=== PATIENT | female | born 1970 | race Caucasian/White ===

== ENCOUNTER 2023-08-09 15:04 | Emergency (ER) | payer BC, SELFPAY ==
[2023-08-09 15:09] VITALS: BP 129/104
[2023-08-09 15:32] LABS: Urine Albumin Negative (Neg - Trace); Urine Bilirubin Negative (Negative); Urine Character Clear (Clear); Urine Color Yellow; Urine Glucose Negative (Negative); Urine Ketone Trace (Negative); Urine Leukocyte 1+ (Negative); Urine Nitrite Negative (Negative); Urine Occult Blood 2+ (Negative); Urine Specific Gravity 1.015 (<1.030); Urine Urobilinogen Negative (Neg - 1+); Urine pH 6.5 (5.0-9.0)
[2023-08-09 15:33] LABS: % Basophils 0.3 % (0-2); % Eosinophils 0.3 % (0-6); % Immature Granulocytes 0.2 % (0-0.5); % Lymphocytes 22.8 % (20.5-51.1); % Monocytes 5.3 % (1.7-9.3); % Neutrophils 71.1 % (42.2-75.2); Absolute Lymphocytes 2.7 10^3/uL (1.2-3.4); Absolute Monocytes 0.6 10^3/uL (0.1-0.6); Absolute Neutrophils 8.5 10^3/uL (1.4-6.5); Hematocrit 43.1 % (37.0-47.0); Hemoglobin 14.1 g/dL (12.0-16.0); Mean Corp Hgb Conc. 32.7 g/dL (33.0-37.0); Mean Corpuscular Hgb 23.1 pg (27.0-31.0); Mean Corpuscular Volume 70.7 fL (81.0-99.0); Mean Platelet Volume 9.2 fL (7.4-10.4); Nucleated Red Blood Cells % 0 %; Platelet Count 348 10^3/uL (130-400); Red Cell Dist. Width 14.4 % (11.5-14.5)
[2023-08-09 15:42] LABS: Urine Bacteria Few (Negative)
[2023-08-09 15:54] LABS: ALT (SGPT) 26 U/L (0-35); AST (SGOT) 30 U/L (14-36); Albumin 4.7 g/dl (3.5-5.0); Alkaline Phosphatase 107 U/L (38-126); Blood Urea Nitrogen 22 mg/dl (7-17); Calcium 9.7 mg/dl (8.4-10.2); Carbon Dioxide 28 mmol/L (22-30); Chloride 101 mmol/L (98-107); Glucose 115 mg/dl (70-99); Lipase 97 U/L (23-300); Potassium 3.7 mmol/L (3.5-5.1); Sodium 137 mmol/L (135-145); Total Bilirubin 0.6 mg/dl (0.2-1.3); Total Protein 7.7 g/dl (6.3-8.2); eGFR > 60.00
[2023-08-09 15:58] LABS: HCG, Serum Qualitative Screen Positive
[2023-08-09] MEDS: NSS 1000 IV (16:51)
[2023-08-09 17:07] LABS: Beta HCG Quantitative < 2.39 mIU/ml
[2023-08-09 19:47] VITALS: BP 152/86
--- NOTE | 2023-08-09 23:52 | ED.GENMED ---
Addendum entered and electronically signed by Campbell Reyes PA-C 08/11/23 15:00:
Urine culture greater than 100,000 colony-forming units of viridans strep group. There is many squamous cells on the urinalysis at the time of the visit however clinical concern was potential kidney stone. Called to speak with patient regarding
results and to assess her status however there is no answer. Left message to call back.
Original Note:
History of Present Illness
General
Chief Complaint: Flank Pain
Source: patient and spouse
Exam Limitations: none
Time Seen by Provider: 08/09/23 16:30
Nursing documentation reviewed up to this point in time: agreed with
Travel History
Have you had any contact with someone who has COVID-19?: No
Do you have any symptoms of coronavirus? Fever > 100 degrees, chills, cough, shortness of breath, sore throat, loss of taste or smell, muscle aches, or headache?: No
History of Present Illness
History of Present Illness:
53-year-old female with past medical history as noted presents to the emergency room for evaluation of abdominal pain. Patient reports onset of symptoms this morning shortly after she woke up�she reports she had very intense left-sided flank pain
that radiated to the left lower abdomen. She says it lasted for about 2 hours and then essentially resolved. She is currently pain-free at the time of assessment. She says she had associated nausea and 1 episode of vomiting with the pain. The
symptoms have also resolved. She denies any recent constipation or diarrhea. She denies any recent dysuria, hematuria, change in urinary frequency. She denies any other complaints. She says she is perimenopausal last menstrual period was
February. She denies any prior abdominal surgeries. She denies similar symptoms in the past. She apparently initially presented to urgent care and urgent care was found to have blood in her urine and was directed to the emergency room to be
evaluated possibly for kidney stone.
Review of Systems
Review of Systems
All Other Systems: ROS reviewed and negative except as documented in HPI and ROS
Constitutional: Denies fever or chills
EENT: Denies sore throat or runny nose
Respiratory: Denies cough or trouble breathing
Cardiac: Denies chest pain or palpitations
ABD/GI: Reports abdominal pain, nausea and vomiting; Denies diarrhea or constipated
: Reports flank pain; Denies dysuria, frequency or bleeding
Musculoskeletal: Denies neck pain or back pain
Neurological: Denies headache, weakness or numbness
Phy Exam
Physical Exam
Physical Exam:
General: Awake, alert, oriented x3; no acute distress
Head: Normocephalic, atraumatic
Eyes: Conjunctiva normal, sclera anicteric
Throat: Airway intact, handling secretions
Neck: Trachea midline, supple without meningismus
Lungs: Clear to auscultation bilaterally, no wheezing, rales, rhonchi
Heart: Regular rate and rhythm, no murmurs, gallops, or rubs
Abd: Soft, non distended, nontender with no masses
Back: No CVA tenderness
Neuro: Cranial nerves grossly intact, speech fluid
Skin: no rash
Extremities: No edema in extremities, equal pulses in all extremities
Scores
Heart Failure Risk
Heart Failure Risk Score: Not Applicable
Heart Score for Chest Pain Patients
STEMI patient?: Not applicable
Withdrawal Assessment of Alcohol
Withdrawal Assessment Completed?: Not applicable
Course
Orders/Labs/Results
Orders:
Orders
08/09/23 15:16
Test Result ONCE
08/09/23 15:23
Beta HCG Quantitative Urgent
Complete Blood Count/With Diff Urgent
Comprehensive Metabolic Panel Urgent
HCG, Serum Qualitative Screen Urgent
Lipase Urgent
Urinalysis Reflex To Culture Urgent
Date Specimen was Collected: 08/09/23
Time Specimen was Collected: 15:16
Urine Microscopic Reflex Cult Urgent
Urine Culture Urgent
MIGUEL Source: U
Specimen Description:
Date Specimen was Collected: 08/09/23
Time Specimen was Collected: 15:16
08/09/23 16:01
Add On- LAB Urgent
Tests Added?: HCG Quantitative
08/09/23 16:32
CT Abd/pel Without Iv Or Oral Urgent
Comment:
Reason For Exam: L flank pain
0.9% Sodium Chloride 1000 ml [Nss] 1,000 ml IV BOLUS
HYDROmorphone [Dilaudid] 1 mg IV NOW STA
Ondansetron Injectable [Zofran] 4 mg IV NOW STA
Abnormal Lab Results
08/09/23
15:23
WBC 12.0 H 10^3/uL
(4.8-10.8)
RBC 6.10 H 10^6/uL
(4.20-5.40)
MCV 70.7 L fL
(81.0-99.0)
MCH 23.1 L pg
(27.0-31.0)
MCHC 32.7 L g/dL
(33.0-37.0)
Absolute Neuts (auto) 8.5 H 10^3/uL
(1.4-6.5)
BUN 22 H mg/dl
(7-17)
Glucose 115 H mg/dl
(70-99)
Urine Ketones Trace A
(Negative)
Ur Occult Blood Reflex 2+ A
(Negative)
Leukocyte Esterase Rfl 1+ A
(Negative)
Urine RBC 7-10 A /HPF
(0-2)
Urine Bacteria (Reflex) Few A
(Negative)
08/09/23 15:23
08/09/23 15:23
Vital Signs
Initial and Last Documented VS:
Initial Vital Signs
Temp Pulse Resp BP Pulse Ox
36.7 C 111 18 129/104 99
08/09/23 15:09 08/09/23 15:09 08/09/23 15:09 08/09/23 15:09 08/09/23 15:09
Last Documented Vital Signs
Temp Pulse Resp BP Pulse Ox
36.7 C 87 16 152/86 97
08/09/23 15:09 08/09/23 19:47 08/09/23 19:47 08/09/23 19:47 08/09/23 19:47
MDM/Problems Addressed
Differential Diagnosis Includes:
Nephrolithiasis, diverticulitis, UTI
MDM/Problems Addressed:
53-year-old female presents for evaluation after an episode of flank pain with nausea and an episode of vomiting that lasted for about 2 hours and has completely resolved. Had blood in her urine at urgent care and was sent to the emergency room for
evaluation. Tachycardic and mildly hypertensive otherwise normal vitals. Exam as above�he notably has no abdominal tenderness. Plan to place an IV check labs including a CBC and a CMP, urinalysis, hCG. Check CT of the abdomen pelvis. Monitor
closely reassess after the above.
Patient's hCG was read as weakly positive�patient perimenopausal last menstrual period in February. hCG quant was sent and was negative.
Labs reviewed: CBC shows slight leukocytosis to 12, CMP no clinically significant abnormalities. Urinalysis is positive for blood, she does pyuria and squamous cells that suggest more likely contaminated sample and without any urinary symptoms low
suspicion for UTI. No antibiotics indicated at present. CT of the abdomen pelvis pending.
CT abdomen pelvis shows 3 mm calcification in the distal left ureter�no significant hydronephrosis unclear whether this represents truly a nephrolithiasis or if this is a pelvic phlebolith. Given her clinical picture nephrolithiasis seems most
likely diagnosis�given that she has been pain-free throughout her ED visit here today, possible she had obstructing stone earlier which was passed or that pain is simply at a lamar presently and she may have recurrence of pain as current stone moves
further or obstructs. No clear indication for admission at this point we will plan to discharge advised to take Tylenol and Motrin as needed if pain returns. She will follow-up with her primary care physician. She feels comfortable with this
plan. Spoke about return precautions all questions answered.
*Radiology
Radiology exam reviewed: radiology read reviewed
*Pulse Oximetry
Patient hypoxic: no
*Critical Care Note
Total Time (30-74mins, 75-104mins- exclusive of procedures): Not Applicable
Data Reviewed
Source: patient and spouse
ED Attending Note
-
Portions of this chart may have been created with voice recognition software.� Occasional wrong word or��sound alike� substitutions may have occurred due to the inherent limitations of voice recognition software.
Discharge Plan
Departure
Patient Disposition: Home (Routine Discharge)
Date of Disposition: 08/09/23
Time of Disposition: 19:40
Patient with high blood pressure during this ER visit?: No
Discharge Problem:
Kidney stone
Instructions: Kidney Stones (DC), Flank Pain (DC)
Referrals:
UNKNOWN - PT DOES,NOT KNOW [Family Provider] -
Activity Restrictions/Additional Instructions:
Thank you for visiting the Emergency Department at [facility].
1. Please schedule a follow up appointment as directed. Call first thing tomorrow morning to make an appointment.
2. If indicated, please take your medications as instructed and indicated on discharge paperwork.
3. If any of your symptoms do not improve, or persist, or become more severe within 6-12 hours, please return to the emergency department for further care.
4. Please return to the emergency department if you develop a headache, neck pain/stiffness, fever greater than 100.4F, chest pain, shortness of breath, persistent nausea, vomiting, slurred speech, difficulty walking, numbness/tingling, weakness,
signs of infection or any other symptoms that are worrisome to you.
Please call [phone] if you have any questions.
Interventions
Interventions:
*Risk Screen - Suicide Last Done: 08/09/23 16:55
*General Assessment Last Done: 08/09/23 15:09
*Neglect/Abuse Screening Last Done: 08/09/23 16:55
ED- Fall Risk Assessment Last Done: 08/09/23 17:01
*ED COVID-19 Vaccine History Last Done: 08/09/23 15:09
*Nursing Disposition Last Done: 08/09/23 19:47
QI-Uoaqpz-Ybtrywnqdu Assessment Last Done: 08/09/23 16:54
ED-Female Genitourinary Assessment Last Done: 08/09/23 16:54
Discharge Date and Time
Discharge Date/Time: 08/09/23 19:49
== END 2023-08-09 19:49 | disposition home or self-care (01) ==
LOC: EMR 15:04
PROVIDERS: Emergency Medicine; EMERGENCY PHYSICIAN Emergency Medicine
DX: R10.9 Unspecified abdominal pain (principal); I10 Essential (primary) hypertension
CPT/HCPCS: 99284; 96360; 74176; 80053; 81003; 81015; 83690; 84702; 84703; 85025; 87086

== ENCOUNTER 2023-09-01 11:19 | Emergency (ER) | payer BC, SELFPAY ==
[2023-09-01 11:20] VITALS: BP 192/107; BMI 19.9
[2023-09-01 11:52] LABS: Urine Albumin Negative (Neg - Trace); Urine Bilirubin Negative (Negative); Urine Character Clear (Clear); Urine Color Yellow; Urine Glucose Negative (Negative); Urine Ketone Trace (Negative); Urine Leukocyte 1+ (Negative); Urine Nitrite Negative (Negative); Urine Occult Blood 3+ (Negative); Urine Urobilinogen Negative (Neg - 1+)
[2023-09-01 12:08] LABS: % Basophils 0.2 % (0-2); % Eosinophils 1.3 % (0-6); % Immature Granulocytes 0.3 % (0-0.5); % Lymphocytes 22.1 % (20.5-51.1); % Monocytes 3.9 % (1.7-9.3); % Neutrophils 72.2 % (42.2-75.2); Absolute Eosinophils 0.1 10^3/uL (0-0.7); Absolute Monocytes 0.4 10^3/uL (0.1-0.6); Absolute Neutrophils 6.5 10^3/uL (1.4-6.5); Hematocrit 43.4 % (37.0-47.0); Hemoglobin 14.5 g/dL (12.0-16.0); Mean Corp Hgb Conc. 33.4 g/dL (33.0-37.0); Mean Corpuscular Hgb 22.9 pg (27.0-31.0); Mean Corpuscular Volume 68.7 fL (81.0-99.0); Mean Platelet Volume 9.3 fL (7.4-10.4); Nucleated Red Blood Cells % 0 %; Platelet Count 321 10^3/uL (130-400); Red Blood Cell Count 6.32 10^6/uL (4.20-5.40); Red Cell Dist. Width 14.7 % (11.5-14.5)
--- NOTE | 2023-09-01 12:22 | ED.GENMED ---
History of Present Illness
General
Chief Complaint: Flank Pain
Source: patient
Exam Limitations: none
Time Seen by Provider: 09/01/23 11:35
Nursing documentation reviewed up to this point in time: agreed with
Travel History
Have you had any contact with someone who has COVID-19?: No
Do you have any symptoms of coronavirus? Fever > 100 degrees, chills, cough, shortness of breath, sore throat, loss of taste or smell, muscle aches, or headache?: No
History of Present Illness
History of Present Illness:
53-year-old female with Sung history of psoriasis presenting to the emergency department today with concerns of left-sided flank discomfort over the past week or so was seen here about a month ago and diagnosed with potential stone in the distal
ureter but not causing any hydronephrosis. She was advised for outpatient follow-up and has not followed up. Symptoms seem to improve but then recurred over the past week. Has had some nausea no vomiting and the pain is ongoing. Denies fevers or
systemic symptoms. Has been able to urinate.
Review of Systems
Review of Systems
Allergies reviewed?: Yes
All Other Systems: ROS reviewed and negative except as documented in HPI and ROS
Phy Exam
Physical Exam
Physical Exam:
GENERAL: Alert , in no apparent distress
EYE: pupils equal and reactive
NECK: Supple, no significant adenopathy.
ENT: o/p clr, mmm.
CARDIAC: Regular rate and rhythm .
LUNGS: Clear breath sounds bilaterally, no acute respiratory distress, no wheezes/rales/rhonchi
ABDOMEN: Soft, without focal tenderness, no r/g, no cvat
NEUROLOGICAL: Alert and oriented, no focal neuro deficits
SKIN: Warm and dry, skin intact.
MUSCULOSKELETAL: No edema, well perfused.
PSYCH: Normal and appropriate interaction.
Course
Orders/Labs/Results
Orders:
Orders
09/01/23 11:23
EKG [Electrocardiogram (*1)] Urgent
Reason for Study: Tachycardia
EKG- Treatment ONCE
09/01/23 11:32
Urinalysis Reflex To Culture Urgent
Date Specimen was Collected: 09/01/23
Time Specimen was Collected: 11:
Urine Microscopic Reflex Cult Urgent
Urine Culture Urgent
MIGUEL Source: U
Specimen Description:
Date Specimen was Collected: 09/01/23
Time Specimen was Collected: :
09/01/23 12:01
Complete Blood Count/With Diff Urgent
Comprehensive Metabolic Panel Urgent
09/01/23 12:12
CT Abd/pel Without Iv Or Oral Urgent
Comment:
Reason For Exam: left flank pain, previous possible non obstructin
Abnormal Lab Results
09/01/23 09/01/23
11:32 12:01
RBC 6.32 H 10^6/uL
(4.20-5.40)
MCV 68.7 L fL
(81.0-99.0)
MCH 22.9 L pg
(27.0-31.0)
RDW 14.7 H %
(11.5-14.5)
BUN 24 H mg/dl
(7-17)
Glucose 107 H mg/dl
(70-99)
Urine Ketones Trace A
(Negative)
Ur Occult Blood Reflex 3+ A
(Negative)
Leukocyte Esterase Rfl 1+ A
(Negative)
Urine RBC 7-10 A /HPF
(0-2)
Urine Bacteria (Reflex) Few A
(Negative)
09/01/23 12:01
09/01/23 12:01
Vital Signs
Initial and Last Documented VS:
Initial Vital Signs
Temp Pulse Resp BP Pulse Ox
97.8 F 112 20 192/107 97
09/01/23 11:20 09/01/23 11:20 09/01/23 11:20 09/01/23 11:20 09/01/23 11:20
Last Documented Vital Signs
Temp Pulse Resp BP Pulse Ox
97.8 F 82 16 161/78 100
09/01/23 11:20 09/01/23 15:37 09/01/23 15:37 09/01/23 15:37 09/01/23 15:37
MDM/Problems Addressed
MDM/Problems Addressed:
53-year-old female presenting to the emergency department today with concerns of left-sided flank discomfort over the past week. Had similar symptoms 1 month ago diagnosed with potential stone to the distal ureter on the left side at the time but
has not followed up. Otherwise no vomiting has had nausea and upon arrival here pulse rate slightly elevated afebrile blood pressure is elevated as well. Labs showing potential mild dehydration with elevated BUN to creatinine ratio but otherwise
no emergent findings urinalysis was a contaminated sample without obvious findings consistent with infection. CT scan without emergent findings incidental findings were discussed with the patient she will follow-up closely as an outpatient. Return
precautions given.
*Critical Care Note
Total Time (30-74mins, 75-104mins- exclusive of procedures): Not Applicable
ED Attending Note
-
Portions of this chart may have been created with voice recognition software.� Occasional wrong word or��sound alike� substitutions may have occurred due to the inherent limitations of voice recognition software.
Discharge Plan
Departure
Patient Disposition: Home (Routine Discharge)
Date of Disposition: 09/01/23
Time of Disposition: 15:52
Patient with high blood pressure during this ER visit?: No
Condition: Good
Covid-19: Not Applicable
Discharge Problem:
Flank pain, Hematuria, microscopic
Instructions: Flank Pain (DC)
Referrals:
Dallas Salinas MD [Active] - Follow up in 5-7 days
Oneil Zhang DO [Family Provider] -
Activity Restrictions/Additional Instructions:
You came to the emergency department today with concerns of ongoing flank discomfort. Here you had a reassuring emergent evaluation. Please follow closely as an outpatient for further assessment. Return to the emergency department for any
worsening, new or concerning symptoms.
Interventions
Interventions:
*Risk Screen - Suicide Last Done: 09/01/23 11:20
*Neglect/Abuse Screening Last Done: 09/01/23 11:20
ED- Fall Risk Assessment Last Done: 09/01/23 12:05
*ED COVID-19 Vaccine History Last Done: 09/01/23 11:20
UX-Pmaojq-Xvwfzrluib Assessment Last Done: 09/01/23 12:05
ED-Female Genitourinary Assessment Last Done: 09/01/23 12:05
[2023-09-01 12:24] LABS: Urine Bacteria Few (Negative)
[2023-09-01 12:29] LABS: ALT (SGPT) 23 U/L (0-35); AST (SGOT) 26 U/L (14-36); Albumin 4.7 g/dl (3.5-5.0); Alkaline Phosphatase 101 U/L (38-126); Blood Urea Nitrogen 24 mg/dl (7-17); Calcium 9.7 mg/dl (8.4-10.2); Carbon Dioxide 28 mmol/L (22-30); Chloride 104 mmol/L (98-107); Estimated Creatinine Clearance 85 ml/min; Glucose 107 mg/dl (70-99); Sodium 137 mmol/L (135-145); Total Bilirubin 0.7 mg/dl (0.2-1.3); Total Protein 7.5 g/dl (6.3-8.2); eGFR > 60.00
--- NOTE | 2023-09-01 12:55 | EDRN ---
Inder Calderon PA in to see pt at this time.
[2023-09-01 12:58] VITALS: BP 152/86
[2023-09-01 15:37] VITALS: BP 161/78
--- NOTE | 2023-09-01 15:47 | EDRN ---
Inder MARQUES in room w/ pt at this time.
== END 2023-09-01 16:07 | disposition home or self-care (01) ==
LOC: EMR 11:19
PROVIDERS: Emergency Medicine; Physician Assistant; EMERGENCY PHYSICIAN Emergency Medicine; FAMILY PHYSICIAN Family Medicine
DX: R10.9 Unspecified abdominal pain (principal); R31.29 Other microscopic hematuria; L40.9 Psoriasis, unspecified
CPT/HCPCS: 99284; 74176; 80053; 81003; 81015; 85025; 87086; 93005